=== PATIENT | male | born 1985 | race African-American/Black ===

== ENCOUNTER 2020-08-01 08:59 | Emergency (ER) | payer OTHER ==
[~2020-08-01] VITALS: Ht 182.9 cm; Wt 115.8 kg
[2020-08-01 09:42] VITALS: BP 125/68
[2020-08-01] MEDS ORDERED: IBUPROFEN 600MG TABLET PO ONE (09:45)
== END 2020-08-01 10:28 | disposition home or self-care (01) ==
LOC: ER 08:59
DX: M25.511 Pain in right shoulder (principal); V89.2XXA Person injured in unspecified motor-vehicle accident, traffic, initial encounter; Y93.55 Activity, bike riding; Y92.89 Other specified places as the place of occurrence of the external cause
CPT/HCPCS: 71046; 73030; 99284